=== PATIENT | female | born 1985 | race African-American/Black ===

== ENCOUNTER → 2024-04-13 | Outpatient (CLI) | payer OTHER ==
[2024-04-13 10:22] LABS: BASOPHILS ABSOLUTE AUTO 0.02 K/mm3 (0.00-0.23); BASOPHILS PERCENT AUTO 0 % (0-2); EOSINOPHILS ABSOLUTE AUTO 0.06 K/mm3 (0.00-0.68); EOSINOPHILS PERCENT AUTO 1 % (0-6); Hematocrit 41.2 % (33.0-51.0); Hemoglobin 13.9 g/dL (11.5-16.0); IMMATURE GRAN ABSOLUTE AUTO 0.01 K/mm3 (0.00-0.10); IMMATURE GRAN PERCENT AUTO 0 % (0-1); LYMPHOCYTES ABSOLUTE AUTO 1.61 K/mm3 (0.84-5.20); LYMPHOCYTES PERCENT AUTO 21 % (21-46); MONOCYTES ABSOLUTE AUTO 0.33 K/mm3 (0.16-1.47); MONOCYTES PERCENT AUTO 4 % (4-13); Mean Corpuscular HGB 29.3 pg (26.0-34.0); Mean Corpuscular HGB Conc 33.7 g/dL (31.5-36.5); Mean Corpuscular Volume 87 fL (80-100); NEUTROPHILS ABSOLUTE AUTO 5.66 K/mm3 (1.96-9.15); NEUTROPHILS PERCENT AUTO 74 % (41-73); Platelet Count 333 K/mm3 (150-400); RDW Coefficient Variation 12.5 % (11.7-14.2); RDW Standard Deviation 39.4 fL (35.1-46.3); Red Blood Cell Count 4.75 M/mm3 (3.80-5.20); White Blood Cell Count 7.69 K/mm3 (4.00-11.30)
[2024-04-13 10:38] LABS: Albumin, Blood 3.5 g/dL (3.4-5.0); Albumin/Globulin Ratio 0.7 (0.8-1.8); Bilirubin, Total 0.4 mg/dL (0.1-1.0); Bun/Creatinine Ratio 10.7 (12.0-20.0); Calcium, Blood 9.4 mg/dL (8.5-10.1); Creatinine, Blood 1.12 mg/dL (0.40-1.00); Globulin, Blood 4.7 g/dL (2.2-4.0); Total Protein, Blood 8.2 g/dL (6.4-8.2)
== END | disposition home or self-care (01) ==
LOC: LAB SHORT 10:18 → LAB 10:18
PROVIDERS: Physician Assistant
DX: R07.9 Chest pain, unspecified (principal)
CPT/HCPCS: 80053; 84484; 85025

== ENCOUNTER 2024-06-09 08:12 | Day surgery (SDC) | payer OTHER ==
[~2024-06-09] VITALS: Ht 160 cm; Wt 85.2 kg
[~2024-06-09 08:12] MED LIST: Lactated Ringer's 1,000 ML IV ONE
[2024-06-09] MEDS ORDERED: DULO60 PO (08:50)
[2024-06-09] MEDS ORDERED: VRAYLAR1.5 MG PO (08:50)
[2024-06-09] MEDS ORDERED: CYMBALTA30 M2 PO (08:50)
[2024-06-09] MEDS ORDERED: INSULIN GL100 UNIT/2 SQ (08:51)
[2024-06-09] MEDS ORDERED: ALOGLIPTIN25 M7 PO (08:51)
[2024-06-09] MEDS ORDERED: Prinivil10 MG PO (08:51)
[2024-06-09] MEDS ORDERED: STEGLATRO15 MG PO (08:51)
[2024-06-09] MEDS ORDERED: GABA100 PO (08:52)
[2024-06-09] MEDS ORDERED: ATOR10 PO (08:53)
[2024-06-09] MEDS ORDERED: Lactated Ringer's 1,000 ML IV ONE ×2 (09:02→11:16)
[2024-06-09] MEDS ORDERED: ALBU90OI INH (09:22)
[2024-06-09] MEDS ORDERED: Rocuronium Bromide 10 MG/ML 5ML Injection IV ONE (09:53)
[2024-06-09] MEDS ORDERED: propofoL 20 ML IV ONE (09:53)
[2024-06-09] MEDS ORDERED: FentaNYL Citrate 50 MCG/ML 2 ML Injection ONE ×2 (09:54→10:58)
--- NOTE | 2024-06-09 10:44 | NUR ---
06/09/24 1044 Fanta Jay 1X GEL PAD BETWEEN EACH HAND AND STIRRUPS
[2024-06-09] MEDS ORDERED: Bupivacaine 0.5% HCl 5 MG/ML 30MLVIAL INJ ONE (10:50)
[2024-06-09] MEDS ORDERED: EPINEPhrine HCl 1 MG/ML 1ML Amp XX ONE (10:51)
[2024-06-09] MEDS ORDERED: Metoclopramide HCl 5MG / ML 2ML Vial ONE (10:53)
[2024-06-09] MEDS ORDERED: Ondansetron HCl 2 MG / ML 2ML Vial ONE ×2 (10:53→11:56)
[2024-06-09] MEDS ORDERED: Sugammadex Sodium 200 MG/2ML SDV (100 MG/ML) ONE ×2 (11:13→11:16)
[2024-06-09 11:52] VITALS: BP 138/72
[2024-06-09] MEDS ORDERED: Ketorolac Tromethamine 30mg Vial ONE (12:09)
== END 2024-06-09 12:35 | disposition home or self-care (01) ==
LOC: ORSCSDS 08:12
PROVIDERS: Obstetrics & Gynecology
PROC: 0UB74ZZ Excision of Bilateral Fallopian Tubes, Percutaneous Endoscopic Approach (ICD-10-PCS; principal; 2024-06-09 09:30)
DX: Z30.2 Encounter for sterilization (principal); I10 Essential (primary) hypertension; J45.909 Unspecified asthma, uncomplicated; E11.9 Type 2 diabetes mellitus without complications; F31.9 Bipolar disorder, unspecified; E66.9 Obesity, unspecified; Z68.33 Body mass index [BMI] 33.0-33.9, adult; Z79.4 Long term (current) use of insulin; Z79.899 Other long term (current) drug therapy
CPT/HCPCS: 82947; 88302; J0171; J1885; J2405; J2704; J2765; J3010; J7120

== ENCOUNTER → 2024-06-23 | Outpatient (CLI) | payer OTHER ==
[~2024-06-23] MED LIST changes: +ALBU90OI INH; +ALOGLIPTIN25 M7 PO; +ATOR10 PO; +CYMBALTA30 M2 PO; +DULO60 PO; +GABA100 PO; +INSULIN GL100 UNIT/2 SQ; -Lactated Ringer's 1,000 ML IV ONE; +Prinivil10 MG PO; +STEGLATRO15 MG PO; +VRAYLAR1.5 MG PO
[2024-06-27 21:33] LABS: APTIMA MEDIA TYPE Unisex Swab; C. TRACHOMATIS BY TMA Negative (Negative); N. GONORRHOEAE BY TMA Negative (Negative); SPECIMEN SOURCE CERVIX; T. VAGINALIS BY TMA Negative (Negative)
== END | disposition home or self-care (01) ==
LOC: LAB 15:08 → LAB SHORT 15:08
PROVIDERS: Family Medicine
DX: Z11.3 Encounter for screening for infections with a predominantly sexual mode of transmission (principal)
CPT/HCPCS: 87491; 87591; 87661